=== PATIENT | female | born 1960 | race African-American/Black ===

== ENCOUNTER 2018-04-06 11:10 | Inpatient (IN) | payer OTHER ==
--- NOTE | 2018-04-06 11:50 | HP ---
CIWA Score - CIWA Score Nausea/Vomitin Muscle Tremors: 2 Anxiety: 2 Agitation: 2 Paroxysmal Sweats: 1-Minimal Palms Moist Orientation: 0-Oriented Tacttile Disturbances: 1-Very Mild Itch/Numbness Auditory Disturbances: 1-Very Mild Visual Disturbances: 1-Very Mild Sensitivity Headache: 2-Mild CIWA-Ar Total Score: 14 Admission ROS BHS - HPI Chief Complaint: i need help to stop drinking alcohol and marijuana Allergies/Adverse Reactions: Allergies Allergy/AdvReac Type Severity Reaction Status Date / Time No Known Allergies Allergy Verified 04/06/18 11:54 History of Present Illness: this 58 years old female with alcohol and marijuana dependence,seeking detox, withdrawal symptom,last detox 1997 in [facility] patient has been attending out patient program but fail nicotine dependence 2 packs/day history of hypertension on medication plant to go back to out patient program after detox Exam Limitations: No Limitations - Ebola screening Have you traveled outside of the country in the last 21 days: No Have you had contact with anyone from an Ebola affected area: No Do you have a fever: No - Review of Systems Constitutional: Loss of Appetite, Malaise, Night Sweats, Changes in sleep, Weakness EENT: reports: Nose Congestion Respiratory: reports: No Symptoms reported Cardiac: reports: No Symptoms Reported GI: reports: Nausea, Poor Appetite, Abdominal cramping Musculoskeletal: reports: Back Pain, Muscle Pain Integumentary: reports: Dryness Neuro: reports: Headache, Tremors Endocrine: reports: No Symptoms Reported Hematology: reports: No Symptoms Reported Psychiatric: reports: No Sypmtoms Reported, Judgement Intact, Mood/Affect Appropiate, Orientated x3 Patient History - Patient Medical History Hx Asthma: No Hx Chronic Obstructive Pulmonary Disease (COPD): No Hx Cancer: No Hx Congestive Heart Failure: No Hx Hypertension: Yes (on med) Hx Hypercholesterolemia: No Hx Pacemaker: No HX Cerebrovascular Accident: No Hx Seizures: No Hx Dementia: No Hx Diabetes: No Hx Gastrointestinal Disorders: No Hx Liver Disease: No Hx Genitourinary Disorders: No Hx Sexually Transmitted Disorders: No Hx Renal Disease (ESRD): No Hx Thyroid Disease: No Hx Human Immunodeficiency Virus (HIV): No Hx Hepatitis C: No Hx Depression: No Hx Suicide Attempt: No Hx Bipolar Disorder: No Hx Schizophrenia: No Other Medical History: no suicidal,no homicidal - Patient Surgical History Past Surgical History: No Hx Appendectomy: Yes (tubal ligation 1994) Other Surgical History: 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 History Hx Alcohol Use: Yes Hx Substance Use: No Substance Use Type: Alcohol, Marijuana Hx Substance Use Treatment: Yes ([facility] 1997) - Substances Abused Alcohol Route: Oral Frequency: Daily Amount used: 3 of 18 ozs of beer Age of first use: 13 Date of Last Use: 04/05/18 Marijuana/Hashish Route: Smoking Frequency: Daily Amount used: 20$ Age of first use: 15 Date of Last Use: 04/04/18 Family Disease History - Family Disease History Family Disease History: CA: Father (, ), Mother (, ), Brother ( two - , one used drugs ), Other: Father, Mother, Brother, Sister (seven - only two living - cancer), Son (one - adult healthy), Daughter (one - adult - healthy) Admission Physical Exam BHS - Vital Signs Vital Signs: Vital Signs Temperature 97.5 F L 04/06/18 11:42 Pulse Rate 77 04/06/18 11:42 Respiratory Rate 20 04/06/18 11:42 Blood Pressure 181/112 H 04/06/18 11:42 O2 Sat by Pulse Oximetry (%) - Physical General Appearance: Yes: Moderate Distress, Tremorous, Irritable, Anxious HEENTM: Yes: Normal ENT Inspection, FRIDA, Pharynx Normal Respiratory: Yes: Lungs Clear, Normal Breath Sounds, No Respiratory Distress Neck: Yes: Within Normal Limits, Supple, Trachea in good position Breast: Yes: Breast Exam Deferred Cardiology: Yes: Within Normal Limits, Regular Rhythm, Regular Rate, S1, S2 Abdominal: Yes: Within Normal Limits, Non Tender, Soft Genitourinary: Yes: Within Normal Limits Back: Yes: Muscle Spasm Musculoskeletal: Yes: Back pain, Muscle Pain Extremities: Yes: Tremors Neurological: Yes: document management analyst II-XII NML intact, Fully Oriented, Alert, Motor Strength 5/5 Integumentary: Yes: Dry Lymphatic: Yes: Within Normal Limits - Diagnostic (1) Alcohol dependence with uncomplicated withdrawal Current Visit: Yes Status: Acute (2) Cannabis dependence Current Visit: No Status: Acute (3) Nicotine dependence Current Visit: No Status: Acute Qualifiers: Nicotine product type: cigarettes Substance use status: uncomplicated Qualified Code(s): F17.210 - Nicotine dependence, cigarettes, uncomplicated (4) Essential hypertension Current Visit: Yes Status: Acute (5) History of carcinoma in situ of cervix Current Visit: Yes Status: Acute (6) History of tubal ligation Current Visit: Yes Status: Acute Cleared for Admission S - Detox or Rehab [facility] Level of Care: Medically Managed Detox Regimen/Protocol: Librium
[2018-04-06 11:54] VITALS: BMI 28.5
[2018-04-06] MEDS ORDERED: guaiFENesin/D-METHORPHAN HB 10 ML UNIT-DOSE CUPS PO PRN (12:00)
[2018-04-06] MEDS ORDERED: IBUPROFEN 400 MG TABLET (FP) PO PRN (12:00)
[2018-04-06] MEDS ORDERED: MAGNESIUM CITRATE 300 ML BOTTLE PO PRN (12:00)
[2018-04-06] MEDS ORDERED: NICOTINE POLACRILEX 2 MG GUM BUC PRN (12:00)
[2018-04-06] MEDS ORDERED: ACETAMINOPHEN 325 MG TABLET (FP) PO PRN (12:00)
[2018-04-06] MEDS ORDERED: LOPERAMIDE HCL 2 MG CAPSULE PO PRN (12:00)
[2018-04-06] MEDS ORDERED: hydrOXYzine PAMOATE 50 MG CAPSULE (FP) PO PRN (12:00)
[2018-04-06] MEDS ORDERED: MAG HYDROX/AL HYDROX/SIMETH 30 ML UNIT-DOSE CUP PO PRN (12:00)
[2018-04-06] MEDS ORDERED: MAGNESIUM HYDROX 2400MG/30ML ORAL SUSPENSION 30 ML CUP PO PRN (12:00)
[2018-04-06] MEDS ORDERED: P-EPHED 60MG/TRIPROLIDI 2.5MG TABLET PO PRN (12:00)
[2018-04-06] MEDS ORDERED: MENTHOL/PHENOL 1 EACH UD MM PRN (12:00)
[2018-04-06] MEDS ORDERED: cloNIDine HCL 0.1 MG TABLET PO ONE (12:55)
[2018-04-06] MEDS: chlordiazePOXIDE HCL 25 MG CAPSULE PO PRN (13:24)
[2018-04-06] MEDS: NICOTINE 21 MG/24 HOURS TOPICAL PATCH TD SCH (13:26)
[2018-04-06 15:03] LABS: URINE APPEARANCE CLEAR; URINE BILIRUBIN NEGATIVE (<2.0 mg/dL); URINE COLOR LTYELLOW; URINE GLUCOSE (UA) NEGATIVE (NEGATIVE); URINE KETONE NEGATIVE (NEGATIVE); URINE LEUK ESTERASE NEGATIVE (NEGATIVE); URINE NITRITE NEGATIVE (NEGATIVE); URINE PROTEIN NEGATIVE (NEGATIVE)
--- NOTE | 2018-04-06 16:06 | EKG ---
Test Reason : Blood Pressure : / mmHG Vent. Rate : 064 BPM Atrial Rate : 064 BPM P-R Int : 138 ms QRS Dur : 082 ms QT Int : 390 ms P-R-T Axes : 055 032 063 degrees QTc Int : 402 ms NORMAL SINUS RHYTHM NORMAL ECG NO PREVIOUS ECGS AVAILABLE Confirmed by MD MAXIMILIAN, PILLO ([id number]) on 04/06/2018 4:06:01 PM Referred By: Confirmed By:PILLO YAO MD
[2018-04-06] MEDS: chlordiazePOXIDE HCL 25 MG CAPSULE PO SCH ×2 (17:15→22:13)
[2018-04-06] MEDS: PATIENT'S OWN MEDICATION (NON-FORMULARY) (Calcium Carbonate/Vitamin D3 [Calcium 500-Vit D3 PO SCH (18:26)
[2018-04-06] MEDS: MELATONIN 5 MG TABLETS PO PRN (22:13)
[2018-04-06] MEDS: THIAMINE HCL 100 MG TABLET (FP) PO SCH (22:13)
[2018-04-07] MEDS: chlordiazePOXIDE HCL 25 MG CAPSULE PO SCH ×2 (06:00→10:33)
[2018-04-07] MEDS: PATIENT'S OWN MEDICATION (NON-FORMULARY) (Calcium Carbonate/Vitamin D3 [Calcium 500-Vit D3 PO SCH (07:00)
[2018-04-07 10:09] LABS: HEMATOCRIT 47.2 % (32.4-45.2); HEMOGLOBIN 15.3 GM/dL (10.7-15.3); MCHC 32.4 g/dl (32.0-36.0); MEAN CELL VOLUME 92.8 fl (80-96); MEAN PLT VOLUME 9.8 fl (7.5-11.1); PLATELET COUNT 190 K/MM3 (134-434); RBC 5.09 M/mm3 (3.60-5.2); RDW 14.1 % (11.6-15.6); WHITE BLOOD COUNT 7.2 K/mm3 (4.0-10.0)
[2018-04-07] MEDS: PRENATAL VITAMINS W/ FOLIC ACID TABLET (FP) PO SCH (10:32)
[2018-04-07] MEDS: NICOTINE 21 MG/24 HOURS TOPICAL PATCH TD SCH (10:33)
[2018-04-07] MEDS: NIFEdipine E.R 60 MG TABLET (UD) PO SCH (10:33)
[2018-04-07 10:37] LABS: ALBUMIN 4.1 g/dl (3.4-5.0); ALK PHOS 83 U/L (45-117); ANION GAP 9 MMOL/L (8-16); BILIRUBIN,TOTAL 0.5 mg/dL (0.2-1); BLOOD UREA NITROGEN 9 mg/dL (7-18); CALCIUM 9.5 mg/dL (8.5-10.1); CHLORIDE 106 mmol/L (98-107); CO2 24 mmol/L (21-32); CREATININE 0.6 mg/dL (0.55-1.3); GLUCOSE,RANDOM 99 mg/dL (74-106); POTASSIUM 3.7 mmol/L (3.5-5.1); SGOT/AST 16 U/L (15-37); SGPT/ALT 22 U/L (13-61); SODIUM 139 mmol/L (136-145); TOT PROT 7.5 g/dl (6.4-8.2)
--- NOTE | 2018-04-07 10:50 | PN ---
S CIWA - CIWA Score Nausea/Vomitin-No Nausea/No Vomiting Muscle Tremors: 3 Anxiety: 3 Agitation: 3 Paroxysmal Sweats: 3 Orientation: 0-Oriented Tacttile Disturbances: 0-None Auditory Disturbances: 0-None Visual Disturbances: 0-None Headache: 0-None Present CIWA-Ar Total Score: 12 BHS Progress Note (SOAP) Subjective: sweats shakes interrupted sleep agitation gassy at times i need [place] Objective: 04/07/18 10:50 Vital Signs Temperature 97.9 F 04/07/18 09:36 Pulse Rate 83 04/07/18 09:36 Respiratory Rate 16 04/07/18 09:36 Blood Pressure 114/80 04/07/18 09:36 O2 Sat by Pulse Oximetry (%) Laboratory Tests 04/06/18 04/07/18 04/07/18 13:10 06:00 06:00 WBC 7.2 RBC 5.09 Hgb 15.3 Hct 47.2 H MCV 92.8 MCH 30.0 MCHC 32.4 RDW 14.1 Plt Count 190 MPV 9.8 Sodium 139 Potassium 3.7 Chloride 106 Carbon Dioxide 24 Anion Gap 9 BUN 9 Creatinine 0.6 Creat Clearance w eGFR > 60 Random Glucose 99 Calcium 9.5 Total Bilirubin 0.5 AST 16 ALT 22 Alkaline Phosphatase 83 Total Protein 7.5 Albumin 4.1 Urine Color Ltyellow Urine Appearance Clear Urine pH 6.0 Ur Specific [place] 1.015 Urine Protein Negative Urine Glucose (UA) Negative Urine Ketones Negative Urine Blood Negative Urine Nitrite Negative Urine Bilirubin Negative Urine Urobilinogen 2.0 H Ur Leukocyte Esterase Negative aaox3 ambulating no acute distress Assessment: 04/07/18 10:50 withdrawal sx Plan: continue detox increase fluids gingerale with meals ordered
[2018-04-08] MEDS: PATIENT'S OWN MEDICATION (NON-FORMULARY) (Calcium Carbonate/Vitamin D3 [Calcium 500-Vit D3 PO SCH ×3 (00:33→17:41)
[2018-04-08] MEDS: chlordiazePOXIDE HCL 25 MG CAPSULE PO SCH ×4 (00:33→10:17)
[2018-04-08] MEDS: THIAMINE HCL 100 MG TABLET (FP) PO SCH ×2 (00:34→22:04)
[2018-04-08] MEDS: NIFEdipine E.R 60 MG TABLET (UD) PO SCH (10:17)
[2018-04-08] MEDS: PRENATAL VITAMINS W/ FOLIC ACID TABLET (FP) PO SCH (10:17)
[2018-04-08] MEDS: NICOTINE 21 MG/24 HOURS TOPICAL PATCH TD SCH (10:18)
--- NOTE | 2018-04-08 11:19 | PN ---
[facility] CIWA - CIWA Score Nausea/Vomitin-No Nausea/No Vomiting Muscle Tremors: 3 Anxiety: 3 Agitation: 3 Paroxysmal Sweats: 2 Orientation: 0-Oriented Tacttile Disturbances: 0-None Auditory Disturbances: 0-None Visual Disturbances: 0-None Headache: 0-None Present CIWA-Ar Total Score: 11 [facility] Progress Note (SOAP) Subjective: sweats shakes interrupted sleep Objective: 04/08/18 11:17 Vital Signs Temperature 97.7 F 04/08/18 09:13 Pulse Rate 79 04/08/18 09:13 Respiratory Rate 16 04/08/18 09:13 Blood Pressure 122/88 04/08/18 09:13 O2 Sat by Pulse Oximetry (%) Laboratory Tests 04/06/18 04/07/18 04/07/18 13:10 06:00 06:00 WBC 7.2 RBC 5.09 Hgb 15.3 Hct 47.2 H MCV 92.8 MCH 30.0 MCHC 32.4 RDW 14.1 Plt Count 190 MPV 9.8 Sodium 139 Potassium 3.7 Chloride 106 Carbon Dioxide 24 Anion Gap 9 BUN 9 Creatinine 0.6 Creat Clearance w eGFR > 60 Random Glucose 99 Calcium 9.5 Total Bilirubin 0.5 AST 16 ALT 22 Alkaline Phosphatase 83 Total Protein 7.5 Albumin 4.1 Urine Color Ltyellow Urine Appearance Clear Urine pH 6.0 Ur Specific [place] 1.015 Urine Protein Negative Urine Glucose (UA) Negative Urine Ketones Negative Urine Blood Negative Urine Nitrite Negative Urine Bilirubin Negative Urine Urobilinogen 2.0 H Ur Leukocyte Esterase Negative RPR Titer 04/07/18 06:00 WBC RBC Hgb Hct MCV MCH MCHC RDW Plt Count MPV Sodium Potassium Chloride Carbon Dioxide Anion Gap BUN Creatinine Creat Clearance w eGFR Random Glucose Calcium Total Bilirubin AST ALT Alkaline Phosphatase Total Protein Albumin Urine Color Urine Appearance Urine pH Ur Specific [place] Urine Protein Urine Glucose (UA) Urine Ketones Urine Blood Urine Nitrite Urine Bilirubin Urine Urobilinogen Ur Leukocyte Esterase RPR Titer Nonreactive aaox3 ambulating no acute distress Assessment: 04/08/18 11:18 withdrawal sx Plan: continue detox increase fluids
[2018-04-08] MEDS: chlordiazePOXIDE 5 MG CAPSULE PO SCH ×2 (17:41→22:04)
[2018-04-08] MEDS: MELATONIN 5 MG TABLETS PO PRN (22:05)
[2018-04-09] MEDS: chlordiazePOXIDE HCL 25 MG CAPSULE PO PRN (02:04)
[2018-04-09] MEDS: chlordiazePOXIDE 5 MG CAPSULE PO SCH ×2 (05:45→11:40)
[2018-04-09] MEDS: PATIENT'S OWN MEDICATION (NON-FORMULARY) (Calcium Carbonate/Vitamin D3 [Calcium 500-Vit D3 PO SCH ×2 (08:30→17:21)
--- NOTE | 2018-04-09 11:00 | PN ---
BHS Progress Note (SOAP) Subjective: tired interrupted sleep Objective: 04/09/18 10:56 Vital Signs Temperature 98.1 F 04/09/18 09:27 Pulse Rate 85 04/09/18 09:27 Respiratory Rate 18 04/09/18 09:27 Blood Pressure 128/89 04/09/18 09:27 O2 Sat by Pulse Oximetry (%) aaox3 ambulating no acute distress Assessment: 04/09/18 10:56 mild withdrawal sx Plan: continue detox increase fluids d/c in am
[2018-04-09] MEDS: NICOTINE 21 MG/24 HOURS TOPICAL PATCH TD SCH (11:39)
[2018-04-09] MEDS: NIFEdipine E.R 60 MG TABLET (UD) PO SCH (11:40)
[2018-04-09] MEDS: PRENATAL VITAMINS W/ FOLIC ACID TABLET (FP) PO SCH (11:40)
[2018-04-09] MEDS: chlordiazePOXIDE HCL 10 MG CAPSULE PO SCH ×2 (17:21→22:26)
[2018-04-09] MEDS: MELATONIN 5 MG TABLETS PO PRN (22:26)
[2018-04-09] MEDS: THIAMINE HCL 100 MG TABLET (FP) PO SCH (22:26)
[2018-04-10] MEDS: chlordiazePOXIDE HCL 10 MG CAPSULE PO SCH (06:53)
[2018-04-10] MEDS: PATIENT'S OWN MEDICATION (NON-FORMULARY) (Calcium Carbonate/Vitamin D3 [Calcium 500-Vit D3 PO SCH (08:11)
[2018-04-10 09:48] VITALS: BP 124/73; PULSE 72; TEMP 97.7
--- NOTE | 2018-04-10 13:39 | DS ---
[facility] Detox Discharge Summary Admission Date: 04/06/18 Discharge Date: 04/10/18 - History Present History: Alcohol Dependence - Physical Exam Results Vital Signs: Vital Signs Temperature 97.7 F 04/10/18 06:00 Pulse Rate 72 04/10/18 06:00 Respiratory Rate 18 04/10/18 06:00 Blood Pressure 124/73 04/10/18 06:00 O2 Sat by Pulse Oximetry (%) Pertinent Admission Physical Exam Findings: PATIENT TOLERATED DETOX REGIMEN WITHOUT ADVERSE EVENT. PATIENT CLINICALLY STABLE UPON D/C, DENIES SI/HI. PATIENT ENCOURAGED TO ATTEND GROUP MEETINGS TO PREVENT RELAPSE AND TO FOLLOW UP WITH PCP WITHIN ONE WEEK OF DISCHARGE. PATIENT STRONGLY ADVISED TO SEEK MEDICAL ATTENTION IF WITHDRAWAL SYMPTOMS OCCUR. - Treatment Hospital Course: Detox Protocol Followed, Detoxed Safely, Responded well, Discharged Condition Good - Medication Discharge Medications: Ambulatory Orders Calcium Carbonate/Vitamin D3 [Calcium 500 + Vit D3 400 Tab] 1 each PO BID Nifedipine ER [Procardia Xl -] 60 mg PO DAILY 03/10/18 - AMA Did Patient Leave Against Medical Advice: No
== END 2018-04-10 08:59 | disposition home or self-care (01) | DRG 775 ==
LOC: YASAS 11:10 → Y6N 11:59
PROC: HZ2ZZZZ Detoxification Services for Substance Abuse Treatment (ICD-10-PCS; principal; 2018-04-06)
DX: F10.230 Alcohol dependence with withdrawal, uncomplicated (principal); F12.20 Cannabis dependence, uncomplicated; F17.210 Nicotine dependence, cigarettes, uncomplicated; I10 Essential (primary) hypertension; Z86.001 Personal history of in-situ neoplasm of cervix uteri; Z98.51 Tubal ligation status
CPT/HCPCS: 36415; 80053; 81003; 85027; 86593; 93005; 93010; J0735

== ENCOUNTER 2018-09-02 14:15 | Inpatient (IN) | payer OTHER ==
[2018-09-02 18:47] VITALS: BMI 29.5
--- NOTE | 2018-09-02 20:26 | HP ---
CIWA Score - Admission Criteria [facility] Guidelines: Admission for Medically Managed Detox: Requires at least one of the followin. CIWA greater than 12 2. Seizures within the past 24 hours 3. Delirium tremens within the past 24 hours 4. Hallucinations within the past 24 hours 5. Acute intervention needed for co occurring medical disorder 6. Acute intervention needed for co occurring psychiatric disorder 7. Severe withdrawal that cannot be handled at a lower level of care (continued vomiting, continued diarrhea, abnormal vital signs) requiring intravenous medication and/or fluids 8. Admission ROS S - HPI Chief Complaint: here for detox from alcohol and THC. Pt states she was sent here by [facility] for inpatient rehab for her chronic use of the alcohol/THC. Pt is mandated by [facility] to go to [facility]. Pt has HTN- took meds earlier today alcohol- 2 bottles of beer- has no withdrawal Sx THC: smokes weed 2 bags/day DUR/IStop- negative Utox- pos for THC , TAMEKA- 0 Allergies/Adverse Reactions: Allergies Allergy/AdvReac Type Severity Reaction Status Date / Time No Known Allergies Allergy Verified 04/06/18 11:54 - Ebola screening Have you traveled outside of the country in the last 21 days: No Have you had contact with anyone from an Ebola affected area: No Do you have a fever: No Patient History - Patient Medical History Hx Asthma: No Hx Chronic Obstructive Pulmonary Disease (COPD): No Hx Cancer: No Hx Cardiac Disorders: No Hx Congestive Heart Failure: No Hx Hypertension: Yes (on med) Hx Hypercholesterolemia: No Hx Pacemaker: No HX Cerebrovascular Accident: No Hx Seizures: No Hx Dementia: No Hx Diabetes: No Hx Gastrointestinal Disorders: No Hx Liver Disease: No Hx Genitourinary Disorders: No Hx Sexually Transmitted Disorders: No Hx Renal Disease (ESRD): No Hx Thyroid Disease: No Hx Human Immunodeficiency Virus (HIV): No Hx Hepatitis C: No Hx Depression: No Hx Suicide Attempt: No Hx Bipolar Disorder: No Hx Schizophrenia: No - Patient Surgical History Past Surgical History: No Hx Neurologic Surgery: No Hx Cataract Extraction: No Hx Cardiac Surgery: No Hx Lung Surgery: No Hx Breast Surgery: No Hx Breast Biopsy: No Hx Abdominal Surgery: No Hx Appendectomy: Yes (tubal ligation 1994) Hx Cholecystectomy: No Hx Genitourinary Surgery: No Hx Section: Yes ( X2. 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 History Hx Alcohol Use: Yes Substance Use Type: Alcohol, Marijuana Family Disease History - Family Disease History Family Disease History: CA: Father (, ), Mother (, ), Brother ( two - , one used drugs ), Other: Father, Mother, Brother, Sister (seven - only two living - cancer), Son (one - adult healthy), Daughter (one - adult - healthy) Admission Physical Exam S - Vital Signs Vital Signs: Vital Signs - 24 hr 09/02/18 18:41 Temperature 98.7 F Pulse Rate 70 Respiratory 18 Rate Blood Pressure 218/110 H - Physical General Appearance: Yes: Within Normal Limits HEENTM: Yes: Within Normal Limits Respiratory: Yes: Within Normal Limits Neck: Yes: Within Normal Limits Cardiology: Yes: Within Normal Limits Abdominal: Yes: Within Normal Limits, Organomegaly, Protuberent Genitourinary: Yes: Within Normal Limits Back: Yes: Within Normal Limits Musculoskeletal: Yes: Within Normal Limits Extremities: Yes: Within Normal Limits Neurological: Yes: Within Normal Limits Integumentary: Yes: Within Normal Limits Lymphatic: Yes: Within Normal Limits - Diagnostic (1) Alcohol dependence in remission Current Visit: No Status: Acute Comment: trial naltrexone 50mg daily - labwork ordered to be done prior to next visit in one week cont to attend group at [facility] (2) Cannabis dependence Current Visit: No Status: Acute (3) HTN (hypertension) Current Visit: No Status: Acute Qualifiers: Hypertension type: essential hypertension Qualified Code(s): I10 - Essential (primary) hypertension Comment: on meds, sees primary BHS Breath Alcohol Content Breath Alcohol Content: 0 Urine Pregancy Test - Result Urine Test Results: Negative - NO line present Urine Drug Screen - Results Drug Screen Negative: No Urine Drug Screen Results: THC-Marijuana Inpatient Rehab Admission - Rehab Decision to Admit Inpatient rehab admission?: Yes - Initial Determination Are CD services needed?: Yes Free of communicable disease: Yes Not in need of hospitalization: Yes - Rehab Admission Criteria Previous failed treatment: Yes Poor recovery environment: Yes Comorbidities: Yes Lacks judgement: No Patient is meeting Inpatient Rehab admission criteria:: Yes (Pt is mandated by DSS via [place] b/c she has continued to use THC and alco)
[2018-09-02] MEDS ORDERED: LOPERAMIDE HCL 2 MG CAPSULE PO PRN (20:35)
[2018-09-02] MEDS ORDERED: MAGNESIUM HYDROX 2400MG/30ML ORAL SUSPENSION 30 ML CUP PO PRN (20:35)
[2018-09-02] MEDS ORDERED: P-EPHED 60MG/TRIPROLIDI 2.5MG TABLET PO PRN (20:35)
[2018-09-02] MEDS ORDERED: MAGNESIUM CITRATE 300 ML BOTTLE PO PRN (20:35)
[2018-09-02] MEDS ORDERED: MAG HYDROX/AL HYDROX/SIMETH 30 ML UNIT-DOSE CUP PO PRN (20:35)
[2018-09-02] MEDS ORDERED: MENTHOL/PHENOL 1 EACH UD MM PRN (20:35)
[2018-09-02] MEDS ORDERED: guaiFENesin 200 MG/10 ML 10 ML UNIT-DOSE CUPS PO PRN (20:35)
[2018-09-02] MEDS ORDERED: LISINOPRIL 10 MG TABLET (FP) PO ONE (20:38)
[2018-09-02] MEDS: THIAMINE HCL 100 MG TABLET (FP) PO SCH (22:52)
--- NOTE | 2018-09-02 23:48 | PN ---
S CIWA - CIWA Score Nausea/Vomitin-No Nausea/No Vomiting Muscle Tremors: None Anxiety: 0-No Anxiety, at Ease Agitation: 0-Normal Activity Paroxysmal Sweats: No Perspiration Orientation: 0-Oriented Tacttile Disturbances: 0-None Auditory Disturbances: 0-None Visual Disturbances: 0-None Headache: 0-None Present CIWA-Ar Total Score: 0 BHS Progress Note (SOAP) Subjective: denies withdrawal sx's. "i feel fine" I can go days with out alcohol and not getting sick" Objective: 09/02/18 23:51 ciwa 0 Vital Signs Temperature 97.8 F 09/02/18 23:22 Pulse Rate 78 09/02/18 23:22 Respiratory Rate 18 09/02/18 23:22 Blood Pressure 130/82 09/02/18 23:22 O2 Sat by Pulse Oximetry (%) Assessment: 09/02/18 23:52 alcoholism Plan: client to be admitted to rehab as per last providers note transfer client to [facility] as she has no withdrawal sx's/ ciwa 0 will cont to monitor clinically for any withdrawal sx's consider detox transfer if for new onset withdrawal sx's
[2018-09-03] MEDS: PRENATAL VITAMINS W/ FOLIC ACID TABLET (FP) PO SCH (10:22)
[2018-09-03] MEDS: NIFEdipine E.R 60 MG TABLET (UD) PO SCH (10:22)
[2018-09-03] MEDS: ACETAMINOPHEN 325 MG TABLET (FP) PO PRN ×2 (11:44→19:01)
[2018-09-03 12:08] LABS: HEMATOCRIT 47.9 % (32.4-45.2); HEMOGLOBIN 15.3 GM/dL (10.7-15.3); MCH 29.4 pg (25.7-33.7); MEAN PLT VOLUME 9.5 fl (7.5-11.1); PLATELET COUNT 180 K/MM3 (134-434); RDW 14.6 % (11.6-15.6); WHITE BLOOD COUNT 5.7 K/mm3 (4.0-10.0)
[2018-09-03 12:09] LABS: ALBUMIN 3.7 g/dl (3.4-5.0); ALK PHOS 69 U/L (45-117); ANION GAP 6 MMOL/L (8-16); BILIRUBIN,TOTAL 0.6 mg/dL (0.2-1); BLOOD UREA NITROGEN 10 mg/dL (7-18); CALCIUM 9.9 mg/dL (8.5-10.1); CHLORIDE 106 mmol/L (98-107); CO2 25 mmol/L (21-32); CREATININE 0.7 mg/dL (0.55-1.3); GLUCOSE,RANDOM 103 mg/dL (74-106); POTASSIUM 3.6 mmol/L (3.5-5.1); SGOT/AST 13 U/L (15-37); SGPT/ALT 18 U/L (13-61); SODIUM 137 mmol/L (136-145); TOT PROT 6.8 g/dl (6.4-8.2)
[2018-09-03 17:30] LABS: PH,URINE 5.5 (5.0-8.0); URINE APPEARANCE CLEAR; URINE BACTERIA 289.4 /hpf (NEGATIVE); URINE BILIRUBIN NEGATIVE (NEGATIVE); URINE CASTS 22 /hpf (0-8); URINE COLOR DK YELLOW; URINE GLUCOSE (UA) NEGATIVE (NEGATIVE); URINE KETONE NEGATIVE (NEGATIVE); URINE LEUK ESTERASE 1+ (NEGATIVE); URINE NITRITE NEGATIVE (NEGATIVE); URINE PROTEIN NEGATIVE (NEGATIVE); URINE RBC 3 /hpf (0-4); URINE WBC 14 /hpf (0-5)
[2018-09-03] MEDS ORDERED: cloNIDine HCL 0.1 MG TABLET PO ONE (19:49)
--- NOTE | 2018-09-03 19:56 | PN ---
BHS Progress Note Note: C/o headache and pressure behind eyes. States feels a bit better since taking tylenol. States take 2 blood pressure medications at home but unsure of names. Vital Signs 09/03/18 18:41 Temperature 98.6 F Pulse Rate 90 Respiratory 18 Rate Blood Pressure 166/100 A& O. Lungs CTA. HR: RR. No pedal edema. Peripheral pulses (+). BHG = BFoot Push = Plan: Attempt to contact patient's home pharmacy. Give CloNidine 0.1 mg PO now.
[2018-09-03] MEDS: THIAMINE HCL 100 MG TABLET (FP) PO SCH (21:36)
[2018-09-03] MEDS: MELATONIN 5 MG TABLETS PO PRN (21:36)
[2018-09-04] MEDS: ACETAMINOPHEN 325 MG TABLET (FP) PO PRN (06:45)
[2018-09-04] MEDS: hydrOXYzine PAMOATE 25 MG CAPSULE (FP) PO PRN (06:45)
[2018-09-04] MEDS: NIFEdipine E.R 60 MG TABLET (UD) PO SCH (09:38)
[2018-09-04] MEDS: PRENATAL VITAMINS W/ FOLIC ACID TABLET (FP) PO SCH (09:38)
[2018-09-04] MEDS: MELATONIN 5 MG TABLETS PO PRN (21:41)
[2018-09-04] MEDS: THIAMINE HCL 100 MG TABLET (FP) PO SCH (21:41)
[2018-09-05] MEDS: NIFEdipine E.R 60 MG TABLET (UD) PO SCH (10:21)
[2018-09-05] MEDS: PRENATAL VITAMINS W/ FOLIC ACID TABLET (FP) PO SCH (10:21)
[2018-09-05] MEDS: THIAMINE HCL 100 MG TABLET (FP) PO SCH (22:15)
[2018-09-06] MEDS: NIFEdipine E.R 60 MG TABLET (UD) PO SCH (09:58)
[2018-09-06] MEDS: PRENATAL VITAMINS W/ FOLIC ACID TABLET (FP) PO SCH (09:58)
[2018-09-06] MEDS: ATENOLOL 25 MG TABLET (FP) PO SCH (10:08)
[2018-09-06] MEDS: THIAMINE HCL 100 MG TABLET (FP) PO SCH (21:11)
[2018-09-06] MEDS: MELATONIN 5 MG TABLETS PO PRN (21:11)
[2018-09-07] MEDS: NIFEdipine E.R 60 MG TABLET (UD) PO SCH (09:38)
[2018-09-07] MEDS: PRENATAL VITAMINS W/ FOLIC ACID TABLET (FP) PO SCH (09:38)
[2018-09-07] MEDS: ATENOLOL 25 MG TABLET (FP) PO SCH (09:39)
[2018-09-07] MEDS: ACETAMINOPHEN 325 MG TABLET (FP) PO PRN ×2 (12:29→20:43)
[2018-09-07] MEDS ORDERED: HYDROCHLOROTHIAZIDE 25 MG TABLET (FP) PO ONE (12:55)
--- NOTE | 2018-09-07 13:10 | PN ---
S Progress Note (SOAP) Subjective: Client with elevated BP, now c/o headache. States she takes BP medications at home, but not sure of names or doses. Objective: neurologically intact, A+O x 3; heart rate stable, lungs clear. 09/07/18 13:06 Assessment: 09/07/18 13:07 HTN Plan: Patient's home pharmacy called, client has not been on Atenalol since 2017. Now on nifidipine 90 mg, Diovan 320mg, and HCTZ 25mg HCTZ ordered now; atenalol discontinued, Nifidipine dose increased and Diovan added. Nurses are aware of changes.
[2018-09-07] MEDS: MELATONIN 5 MG TABLETS PO PRN (20:44)
[2018-09-07] MEDS: THIAMINE HCL 100 MG TABLET (FP) PO SCH (22:37)
[2018-09-08] MEDS: IBUPROFEN 400 MG TABLET (FP) PO PRN (06:26)
[2018-09-08] MEDS: HYDROCHLOROTHIAZIDE 25 MG TABLET (FP) PO SCH (10:28)
[2018-09-08] MEDS: PRENATAL VITAMINS W/ FOLIC ACID TABLET (FP) PO SCH (10:28)
[2018-09-08] MEDS: NIFEdipine E.R. 90 MG TABLET (FP) PO SCH (10:28)
[2018-09-08] MEDS: VALSARTAN 160 MG TABLET (UD) PO SCH (10:28)
[2018-09-08] MEDS: THIAMINE HCL 100 MG TABLET (FP) PO SCH (21:18)
[2018-09-08] MEDS: MELATONIN 5 MG TABLETS PO PRN (21:18)
[2018-09-08] MEDS: ACETAMINOPHEN 325 MG TABLET (FP) PO PRN (21:19)
[2018-09-09] MEDS ORDERED: PT OWN MED DRAWER 7, Y5N ONE (09:02)
[2018-09-09] MEDS: VALSARTAN 160 MG TABLET (UD) PO SCH (10:00)
[2018-09-09] MEDS: PRENATAL VITAMINS W/ FOLIC ACID TABLET (FP) PO SCH (10:00)
[2018-09-09] MEDS: HYDROCHLOROTHIAZIDE 25 MG TABLET (FP) PO SCH (10:00)
[2018-09-09] MEDS: NIFEdipine E.R. 90 MG TABLET (FP) PO SCH (10:01)
[2018-09-09] MEDS: ACETAMINOPHEN 325 MG TABLET (FP) PO PRN (18:56)
[2018-09-09] MEDS: THIAMINE HCL 100 MG TABLET (FP) PO SCH (21:51)
[2018-09-09] MEDS: MELATONIN 5 MG TABLETS PO PRN (21:51)
[2018-09-10] MEDS: ACETAMINOPHEN 325 MG TABLET (FP) PO PRN ×3 (07:06→21:25)
[2018-09-10] MEDS: PRENATAL VITAMINS W/ FOLIC ACID TABLET (FP) PO SCH (10:17)
[2018-09-10] MEDS: HYDROCHLOROTHIAZIDE 25 MG TABLET (FP) PO SCH (10:17)
[2018-09-10] MEDS: NIFEdipine E.R. 90 MG TABLET (FP) PO SCH (10:17)
[2018-09-10] MEDS: VALSARTAN 160 MG TABLET (UD) PO SCH (10:18)
[2018-09-10] MEDS: THIAMINE HCL 100 MG TABLET (FP) PO SCH (21:24)
[2018-09-10] MEDS: MELATONIN 5 MG TABLETS PO PRN (21:25)
[2018-09-10] MEDS ORDERED: cloNIDine HCL 0.1 MG TABLET PO ONE (22:28)
[2018-09-11] MEDS ORDERED: PT OWN MED DRAWER 7, Y5N ONE (08:45)
[2018-09-11] MEDS: VALSARTAN 160 MG TABLET (UD) PO SCH (10:28)
[2018-09-11] MEDS: PRENATAL VITAMINS W/ FOLIC ACID TABLET (FP) PO SCH (10:29)
[2018-09-11] MEDS: HYDROCHLOROTHIAZIDE 25 MG TABLET (FP) PO SCH (10:29)
[2018-09-11] MEDS: ACETAMINOPHEN 325 MG TABLET (FP) PO PRN ×2 (10:29→18:03)
[2018-09-11] MEDS: NIFEdipine E.R. 90 MG TABLET (FP) PO SCH (10:57)
[2018-09-11] MEDS: THIAMINE HCL 100 MG TABLET (FP) PO SCH (21:42)
[2018-09-11] MEDS: MELATONIN 5 MG TABLETS PO PRN (21:42)
[2018-09-12] MEDS: VALSARTAN 160 MG TABLET (UD) PO SCH (09:33)
[2018-09-12] MEDS: PRENATAL VITAMINS W/ FOLIC ACID TABLET (FP) PO SCH (09:34)
[2018-09-12] MEDS: HYDROCHLOROTHIAZIDE 25 MG TABLET (FP) PO SCH (09:34)
[2018-09-12] MEDS: NIFEdipine E.R. 90 MG TABLET (FP) PO SCH (09:34)
[2018-09-12] MEDS: ACETAMINOPHEN 325 MG TABLET (FP) PO PRN (09:35)
[2018-09-12] MEDS: MELATONIN 5 MG TABLETS PO PRN (21:28)
[2018-09-12] MEDS: THIAMINE HCL 100 MG TABLET (FP) PO SCH (21:28)
[2018-09-13] MEDS: HYDROCHLOROTHIAZIDE 25 MG TABLET (FP) PO SCH (10:20)
[2018-09-13] MEDS: PRENATAL VITAMINS W/ FOLIC ACID TABLET (FP) PO SCH (10:20)
[2018-09-13] MEDS: NIFEdipine E.R. 90 MG TABLET (FP) PO SCH (10:21)
[2018-09-13] MEDS: VALSARTAN 160 MG TABLET (UD) PO SCH (10:21)
[2018-09-13] MEDS ORDERED: COLLOIDAL OATMEAL 1 BAR EACH TP PRN (10:33)
[2018-09-13] MEDS: MELATONIN 5 MG TABLETS PO PRN (21:39)
[2018-09-13] MEDS: THIAMINE HCL 100 MG TABLET (FP) PO SCH (21:40)
[2018-09-14] MEDS: PRENATAL VITAMINS W/ FOLIC ACID TABLET (FP) PO SCH (10:16)
[2018-09-14] MEDS: HYDROCHLOROTHIAZIDE 25 MG TABLET (FP) PO SCH (10:16)
[2018-09-14] MEDS: VALSARTAN 160 MG TABLET (UD) PO SCH (10:17)
[2018-09-14] MEDS: NIFEdipine E.R. 90 MG TABLET (FP) PO SCH (10:17)
[2018-09-14] MEDS: IBUPROFEN 400 MG TABLET (FP) PO PRN (10:18)
[2018-09-14] MEDS ORDERED: CYCLOBENZAPRINE HCL 10 MG TABLET (FP) PO ONE (14:39)
--- NOTE | 2018-09-14 14:39 | PN ---
S Progress Note (SOAP) Subjective: c/o left shoulder pain; states she did not injure it, however, she was found sleeping on left side and says that she frequently sleeps that way. Pain associated with tingling in her fingers. States relief with motrin. Objective: 09/14/18 14:38 Left arm with ROM limited with extension and flexion. Skin pink, color consistent throughout; brisk capillary refill all fingers. Assessment: 09/14/18 14:39 Arthritis Plan: Continue with motrin, Flexeril x 1 given
[2018-09-14] MEDS: THIAMINE HCL 100 MG TABLET (FP) PO SCH (21:18)
[2018-09-14] MEDS: MELATONIN 5 MG TABLETS PO PRN (21:18)
[2018-09-15 07:02] VITALS: TEMP 97.9
[2018-09-15] MEDS: HYDROCHLOROTHIAZIDE 25 MG TABLET (FP) PO SCH (10:50)
[2018-09-15] MEDS: VALSARTAN 160 MG TABLET (UD) PO SCH (10:50)
[2018-09-15] MEDS: PRENATAL VITAMINS W/ FOLIC ACID TABLET (FP) PO SCH (10:50)
[2018-09-15] MEDS: NIFEdipine E.R. 90 MG TABLET (FP) PO SCH (10:51)
--- NOTE | 2018-09-15 15:14 | PN ---
S Progress Note (SOAP) Subjective: For discharge tomorrow, seen yesterday for left arm pain, which she states has resolved. Objective: 09/15/18 15:14 Vital Signs (72 hours) 09/13/18 09/13/18 09/13/18 00:30 03:30 07:28 Temperature 98.2 F Pulse Rate 76 Respiratory 18 18 18 Rate Blood Pressure 115/81 09/13/18 09/13/18 09/14/18 09:50 22:00 00:30 Temperature Pulse Rate 71 83 Respiratory 18 Rate Blood Pressure 136/86 123/83 09/14/18 09/14/18 09/14/18 03:30 07:32 09:28 Temperature 98.0 F Pulse Rate 82 82 Respiratory 18 18 18 Rate Blood Pressure 103/65 134/98 09/15/18 09/15/18 09/15/18 00:30 07:01 09:15 Temperature 97.9 F Pulse Rate 85 77 Respiratory 18 18 Rate Blood Pressure 120/86 135/86 09/15/18 15:14 CBC, BMP 09/03/18 10:00 09/03/18 10:00 09/15/18 15:15 PE: A+O x3; Cn2-12 intact, neurologically intact. No tenderness on palpation of left arm and shoulder, full ROM. Lungs with wheeze R upper lobe (client is aware, chronic, related to smoking). Heart rate regular, S1S2 audible. Abd soft , non-tender, non-distended, + BS all 4 quadrants. Assessment: Medically stable for discharge Diagnosis: ETOH in remission, Cannabis dependence, chronic Nicotine dependence, chronic HTN, chronic 09/15/18 15:18 Plan: Client will go to aftercare at [facility]. Sees PCP Noe in [place]. States she has sufficient medications at home and does not need prescriptions.
[2018-09-15] MEDS: THIAMINE HCL 100 MG TABLET (FP) PO SCH (21:27)
[2018-09-15] MEDS: MELATONIN 5 MG TABLETS PO PRN (21:27)
[2018-09-15] MEDS: hydrOXYzine PAMOATE 25 MG CAPSULE (FP) PO PRN (21:27)
[2018-09-16 08:58] VITALS: BP 146/96; PULSE 87
[2018-09-16] MEDS: VALSARTAN 160 MG TABLET (UD) PO SCH (09:02)
[2018-09-16] MEDS: HYDROCHLOROTHIAZIDE 25 MG TABLET (FP) PO SCH (09:03)
[2018-09-16] MEDS: NIFEdipine E.R. 90 MG TABLET (FP) PO SCH (09:03)
[2018-09-16] MEDS: PRENATAL VITAMINS W/ FOLIC ACID TABLET (FP) PO SCH (09:03)
[2018-09-16] MEDS ORDERED: PT OWN MED DRAWER 7, Y5N ONE (09:07)
== END 2018-09-16 09:52 | disposition home or self-care (01) | DRG 772 ==
LOC: YASAS 14:15 → Y3E 18:03 → Y3N 21:37 → Y3E 23:42
PROVIDERS: ADMIT Neuromusculoskeletal Medicine & OMM; ATTEND Neuromusculoskeletal Medicine & OMM
PROC: HZ42ZZZ Group Counseling for Substance Abuse Treatment, Cognitive-Behavioral (ICD-10-PCS; principal; 2018-09-02)
DX: F10.20 Alcohol dependence, uncomplicated (principal); F12.20 Cannabis dependence, uncomplicated; F17.210 Nicotine dependence, cigarettes, uncomplicated; I10 Essential (primary) hypertension; M19.90 Unspecified osteoarthritis, unspecified site
CPT/HCPCS: 36415; 80053; 81003; 85027; 86593; 90853; J0735